=== PATIENT | female | born 1985 | race Caucasian/White ===

== ENCOUNTER 2021-07-06 17:19 | Emergency (ER) | payer MEDICAID ==
[~2021-07-06] VITALS: Ht 160 cm; Wt 77.0 kg
[~2021-07-06 17:19] MED LIST: SULFAMETHOXAZOLE; TERCONAZOLE
[2021-07-06] MEDS ORDERED: METOCLOPRAMIDE HCL 10MG/2ML VIAL IV STA (17:23)
[2021-07-06] MEDS ORDERED: VISCOUS LIDOCAINE 2% 15 ML UDC PO STA (17:23)
[2021-07-06] MEDS ORDERED: KETOROLAC 30MG/ML VIAL IV STA (17:23)
[2021-07-06] MEDS ORDERED: MAGNESIUM/ALUMINUM HYDROXIDE/SIMETHICONE 30ML UDC PO STA (17:23)
[2021-07-06] MEDS ORDERED: PANTOPRAZOLE SODIUM 40 MG/VIAL IV STA (17:23)
[2021-07-06] MEDS ORDERED: LORAZEPAM 1MG TABLET PO ONE (18:00)
[2021-07-06 18:07] LABS: BASOPHILS % 0.6 % (0.0-2.0); EOSINOPHILS % 2.1 % (0.0-5.0); HEMATOCRIT. 40.7 % (36.0-48.0); HEMOGLOBIN. 13.5 g/dL (12.0-16.0); LYMPHOCYTES % 40.6 % (20.0-50.0); MEAN CORPUSCULAR VOLUME 84.4 fL (81.0-99.0); MEAN PLATELET VOLUME 9.4 fl (7.4-10.4); MONOCYTES % 6.5 % (2.0-8.0); NEUTROPHILS % 50.2 % (40.0-76.0); PLATELET 247 x1000/uL (130-400); RED BLOOD CELL COUNT 4.82 mill/uL (4.2-5.4); RED CELL DISTRIBUTION WIDTH 13.9 % (11.6-14.6)
[2021-07-06 18:12] LABS: CLARITY URINE CLEAR (CLEAR); COLOR URINE YELLOW (YELLOW); KETONES URINE TRACE (NEGATIVE); LEUKOCYTE ESTERASE URINE NEGATIVE (NEGATIVE); NITRITE URINE NEGATIVE (NEGATIVE); OCCULT BLOOD URINE NEGATIVE (NEGATIVE); PH URINE 5.5 (4.5-8.0); PROTEIN URINE NEGATIVE (NEGATIVE); SPECIFIC GRAVITY URINE 1.028 (1.005-1.030)
[2021-07-06 18:18] LABS: CHLORIDE 103 mEq/L (98-107)
[2021-07-06 19:11] LABS: HCG SCREEN NEGATIVE
[2021-07-06] MEDS ORDERED: METOCLOPRAMIDE HCL 10MG/2ML VIAL IV NR (19:45)
[2021-07-06] MEDS ORDERED: VISCOUS LIDOCAINE 2% 15 ML UDC PO NR (19:45)
[2021-07-06] MEDS ORDERED: PANTOPRAZOLE SODIUM 40 MG/VIAL IV NR (19:45)
[2021-07-06] MEDS ORDERED: KETOROLAC 30MG/ML VIAL IV NR (19:45)
[2021-07-06 19:59] VITALS: BP 143/70
== END 2021-07-06 22:51 | disposition home or self-care (01) ==
LOC: ER 17:19
DX: R07.89 Other chest pain (principal); F41.9 Anxiety disorder, unspecified
CPT/HCPCS: 36415; 71045; 80053; 81003; 81025; 82248; 82962; 83690; 84484; 84703; 85025; 93005; 96374; 96375; 99285; C9113; J1885; J2765